=== PATIENT | female | born 1970 | race Caucasian/White ===

== ENCOUNTER 2022-11-22 17:22 | Emergency (ER) | payer BC ==
[~2022-11-22] VITALS: Ht 160 cm; Wt 69.4 kg
[2022-11-22] MEDS ORDERED: IBUPROFEN 600 MG TAB PO STA (17:56)
[2022-11-22] MEDS ORDERED: IBUPROFEN 600 MG TAB ONE (18:17)
[2022-11-22] MEDS ORDERED: NAPROSYN500 MG PO (19:28)
[2022-11-22 19:47] VITALS: BP 131/74
== END 2022-11-22 19:55 | disposition home or self-care (01) ==
LOC: ER 17:34
DX: S83.8X2A Sprain of other specified parts of left knee, initial encounter (principal); S93.492A Sprain of other ligament of left ankle, initial encounter; W54.1XXA Struck by dog, initial encounter; Y93.01 Activity, walking, marching and hiking; Y92.89 Other specified places as the place of occurrence of the external cause
CPT/HCPCS: 99283